=== PATIENT | male | born 2000 | race Caucasian/White ===

== ENCOUNTER 2019-08-13 08:00 | Outpatient (RCR) | payer OTHER, SELFPAY ==
--- NOTE | 2019-02-19 09:30 | HP.PTEVAL_ITS ---
Patient's Visit Information THOR KWOK is a 18 year old M referred to Physical Therapy by BAKARI RODRIGUEZ with a diagnosis of L aCL tear s/p repair 01/27. Date of Evaluation: 02/19/19 Physical Therapist: Davey Prieto, DPT, OCS, CSCS - Visit Plan Frequency: 3x /Week Duration: up to 6 months duration Plan: 3x/week initially x 3-6 weeks for short term goals then 1-3x/week for up to 6 month total to progress return to sport actiivities as allowed by protocol. Please start per prptocol WBAT L locked 0-30 until week for then 10 degree progression until return to doctor. Progress knee flexion ROM to 90 by week 6. patellar mobs, HS stretches and rollout. Strrengthening per protocol. - Subjective Findings: L ACL repair 01/27/19. Went to PT for 2 weeks back in [facility] where he lives. 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 So it is a worker's comp injury. Actual injury was 01/03/19. 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 Pain level is not bad, doesn't hurt at all. Took pain meds for 24 hours then done. Has baby aspirin for blood clots. Sleep is fine in brace. Brace is on all the time and 0-30 currently . Had crutches for the first week. Attends practice but not playing. Walking campus without difficulty. Steps are Ok. Surgery was HS graft. HEP : HS stretch. TKE, knee flexion with band, 4 way SLR, HS - Pain L knee Pain Intensity (Out of 10): 0 Pain Intensity Range: 0, 2 Comment: only if wrong step walking. - Objective Walks with brace on locked 0-30 I, minimal L knee flexion at swing. Transfers I in brace, dons and doffs brace I. HEP reviewed adn I. AROM L knee 0-75 initially then 88 after stretching. no quad lag with extension x 5. R knee 0- 140. seated AROM -5 ext to 75 L knee. ankle AROM WNL and strength 5/5 B. Hip AROM WNL and strength L 4/5 adn R 4+. HS 90/90 test -20 degrees with pulling on L. Incisions have healed well adn slight scar tissue only. - Goals Goal 1:: ST: 0 140 aROM as allowed by protocol without pain. Goal Time Frame: 6-8 Weeks Goal 2:: Progress to walking and steps without pain or compensation Goal Time Frame: 6-8 Weeks Goal 3:: LT: I approp HEP in gyma at school to minimize problems Goal Time Frame: 6-8 Weeks Goal 4:: Ready to attempt return to full sport as allowed by protocol with. 90+% quad and HS strength L to R and 90+% L to R SL hop test and no compensation with running and kicking. Goal Time Frame: 6 months - Rehabilitation Potential Physical Therapy Diagnosis: s/p L ACL repair with HS graft 01/27 Rehabilitation Potential: Excellent - Anticipated Interventions Patient/Client Instruction: Educate patient on: Condition, Plan of Care For the Purpose of:: To decrease swelling/inflammation, To increase ROM, To improve muscle performance and motor function, To improve ability to perform ADL's, To improve ability of physical actions for home/community/work/leisure Therapeutic Exercise to Include: Strength training, Postural training, Flexibilty training, Gait and locomotor training, Passive ROM, Active ROM For the Purpose of:: To decrease pain, To increase ROM, To improve muscle performance and motor function, To increase tolerance to activity/condition/position, To improve ability of physical actions for home/community/work/leisure, To improve gait and locomotor functions Manual Therapy Techniques to Include: Scar massage, Mobilization Cryotherapy (ice pack, ice massage): Yes For the Purpose of:: To decrease pain, To decrease swelling/inflammation Thank you for the opportunity to evaluate your patient. For Medicare and Medicare HMO plans, please review the plan of care and approve it. It will need to be FAXED BACK to us at [phone] for Medicare purposes. For Medicare only, by signing this I certify the plan of care. Please let me know if there are questions or concerns regarding this plan of care. Physician Signature: Date:
--- NOTE | 2019-04-02 08:01 | HP.PTREVAL ---
BAKARI RODRIGUEZ, It has been my pleasure to treat THOR KWOK over the last 15 visits for L aCL tear s/p repair 01/27. Please see the progress note below for an update on the physical therapy plan of care! Subjective: No pain. Sleep is good. Activities outside of sports are pretty normal. HEP: exercising hip machine and band walk and bike and HSC at [employer]. Does leg press at [employer]. Objective/Function: 129 R knee flexion and 121 L knee. Full extension B knees. SLR x 20 without lag today on L side. Walks normal. L girth 6 suprapatella 19.5 inches adn R is 20.25 inches. Steps are reciprocal without rail without deficits today and can do 2 steps at a time easily. Strength L HS:4-. Strength quad at 45 degrees seated:4. OVERALL DOING VERY WELL ADN APPROPRIATE TO CONTINUE I AT GYM ADN IN THERAPY TO PROGRESS FUNCTION PER PRPTOCOL WITH GOOD PROGNOSIS Plan Plan: WEEEKLY TO PRGORESS HEP PER PRPTOCOL. Goals Goal 1:: ST: 0 140 aROM as allowed by protocol without pain. Goal Time Frame: 6-8 Weeks Goal Progress: Progressing Goal 2:: Progress to walking and steps without pain or compensation Goal Time Frame: 6-8 Weeks Goal Progress: Goal Met Goal 3:: LT: I approp HEP in gyma at school to minimize problems Goal Time Frame: 6-8 Weeks Goal Progress: Goal Met, initial strengt Goal 4:: Ready to attempt return to full sport as allowed by protocol with. 90+% quad and HS strength L to R and 90+% L to R SL hop test and no compensation with running and kicking. Goal Time Frame: 6 months Anticipated Interventions Patient/Client Instruction: Educate patient on: Condition, Plan of Care For the Purpose of:: To decrease swelling/inflammation, To increase ROM, To improve muscle performance and motor function, To improve ability to perform ADL's, To improve ability of physical actions for home/community/work/leisure Therapeutic Exercise to Include: Strength training, Postural training, Flexibilty training, Gait and locomotor training, Passive ROM, Active ROM For the Purpose of:: To decrease pain, To increase ROM, To improve muscle performance and motor function, To increase tolerance to activity/condition/position, To improve ability of physical actions for home/community/work/leisure, To improve gait and locomotor functions Manual Therapy Techniques to Include: Scar massage, Mobilization Cryotherapy (ice pack, ice massage): Yes For the Purpose of:: To decrease pain, To decrease swelling/inflammation Please do not hesitate to contact me at [phone] by phone or if you have questions or concerns regarding this new plan of care! Sincerely, Davey Prieto, DPT, OCS, CSCS
--- NOTE | 2019-05-07 08:46 | HP.PTREVAL ---
BAKARI RODRIGUEZ, It has been my pleasure to treat THOR KWOK over the last 20 visits for L aCL tear s/p repair 01/27. Please see the progress note below for an update on the physical therapy plan of care! Subjective: Doing well. No pain, stiff sometimes. Life normal outside of sports. Doing strength at gym 2-3x/week. Will be on break next week adn have 3 month f/u with doctor. Objective/Function: 0-130 L knee AROM, 0-133 Right. 20.5 inches B girth 6 inch suprapatellar. Walking normal, steps normal. Tightness in quad and HS persist and patient working on this at home. Started gentle sideshuffle today adn hopping in place without incident. Jogged and jumped in place withotu antalgia or pain today. Slightly avoid L with hop but corrects with cues. Plan Plan: Weekly x 3 months to progress agility, strength, plyometrics until appropriate return to sport criteria met. pt to do workouts 3x/week at school/home gym adn see therapist for appropriate progressions unless otherwise indicated. Pt to go home to see doctor for Thanks break aand then will be back for two visits before break. Goals Goal 1:: ST: 0 140 aROM as allowed by protocol without pain. Goal Time Frame: 6-8 Weeks Goal Progress: Progressing Goal 2:: Progress to walking and steps without pain or compensation Goal Time Frame: 6-8 Weeks Goal Progress: Goal Met Goal 3:: LT: I approp HEP in gyma at school to minimize problems Goal Time Frame: 6-8 Weeks Goal Progress: Goal Met, initial strengt Goal 4:: Ready to attempt return to full sport as allowed by protocol with. 90+% quad and HS strength L to R and 90+% L to R SL hop test and no compensation with running and kicking. Goal Time Frame: 6 months Anticipated Interventions Patient/Client Instruction: Educate patient on: Condition, Plan of Care For the Purpose of:: To decrease swelling/inflammation, To increase ROM, To improve muscle performance and motor function, To improve ability to perform ADL's, To improve ability of physical actions for home/community/work/leisure Therapeutic Exercise to Include: Strength training, Postural training, Flexibilty training, Gait and locomotor training, Passive ROM, Active ROM For the Purpose of:: To decrease pain, To increase ROM, To improve muscle performance and motor function, To increase tolerance to activity/condition/position, To improve ability of physical actions for home/community/work/leisure, To improve gait and locomotor functions Manual Therapy Techniques to Include: Scar massage, Mobilization Cryotherapy (ice pack, ice massage): Yes For the Purpose of:: To decrease pain, To decrease swelling/inflammation Please do not hesitate to contact me at [phone] by phone or if you have questions or concerns regarding this new plan of care! Sincerely, Davey Prieto, DPT, OCS, CSCS
--- NOTE | 2019-05-21 07:51 | HP.PTREVAL ---
BAKARI RODRIGUEZ, It has been my pleasure to treat THOR KWOK over the last 21 visits for L aCL tear s/p repair 01/27. Please see the progress note below for an update on the physical therapy plan of care! Subjective: No setbacks, doing well, no real pain. Saw doctor while he was home last week. Worked out 4 times while at home. Doctor said he was doing well adn can slowy progress back to activity. Will see doctor in late July hopefully for final release. Objective/Function: 20.5 inch B girth. 0-132 B AROM without pain. L HS strength 46, R 54. L quad strength 51# and R 58#. sLIGHT COMPENSATION STARTING TWO LEGGED HOP IN PLACE AVOIDING L LE BUT CORRECTED WITH VC. PROGRESSED JOGGING TO START SLOW INTERVALS WITHOUT LIMPING TODAY. PROGRESSED TO 50% AGILITY WITHOUT PAIN OR PROBLEMS. ROM REMAINS FULL AND NO PAIN WITH STRENGTH TESTING ABOVE TODAY. Plan Plan: Next visit: measure and progress to single leg side hops, drop jump, 75% agility, weight to SLS, check treadmill intervals. Appropriate to see weekly to every other week to progress through return to sport protocol over the next 3 months per doctors timeline. Will need more visits to do so. Goals Goal 1:: ST: 0 140 aROM as allowed by protocol without pain. Goal Time Frame: 6-8 Weeks Goal Progress: symmetrical Goal 2:: Progress to walking and steps without pain or compensation Goal Time Frame: 6-8 Weeks Goal Progress: Goal Met Goal 3:: LT: I approp HEP in gyma at school to minimize problems Goal Time Frame: 6-8 Weeks Goal Progress: continual goal until RTS Goal 4:: Ready to attempt return to full sport as allowed by protocol with. 90+% quad and HS strength L to R and 90+% L to R SL hop test and no compensation with running and kicking. Goal Time Frame: 6 months Goal Progress: Progressing Anticipated Interventions Patient/Client Instruction: Educate patient on: Condition, Plan of Care For the Purpose of:: To decrease swelling/inflammation, To increase ROM, To improve muscle performance and motor function, To improve ability to perform ADL's, To improve ability of physical actions for home/community/work/leisure Therapeutic Exercise to Include: Strength training, Postural training, Flexibilty training, Gait and locomotor training, Passive ROM, Active ROM For the Purpose of:: To decrease pain, To increase ROM, To improve muscle performance and motor function, To increase tolerance to activity/condition/position, To improve ability of physical actions for home/community/work/leisure, To improve gait and locomotor functions Manual Therapy Techniques to Include: Scar massage, Mobilization Cryotherapy (ice pack, ice massage): Yes For the Purpose of:: To decrease pain, To decrease swelling/inflammation Please do not hesitate to contact me at [phone] by phone or if you have questions or concerns regarding this new plan of care! Sincerely, Davey Prieto, DPT, OCS, CSCS
--- NOTE | 2019-07-16 08:58 | HP.PTREVAL ---
BAKARI RODRIGUEZ, It has been my pleasure to treat THOR KWOK over the last 24 visits for L aCL tear s/p repair 01/27. Please see the progress note below for an update on the physical therapy plan of care! Subjective: No problems with exercises which he has been compliant with and no pain or soreness. Exercising withi prescribed limitations. Objective/Function: About 6 months out on his surgery and progressing nicely. works hard as I would expect an athlete to do. No obvious gait deficits with sprinting on TM but 11.4 is about his limit physically. Full APROM without pain. girth: 6 inch SP: R:21 inch L:20.5 inches(1/2 inch difference, good quad contraction. HS L 49# and R 58#. Quad L 64# and R is 70#. SLH 53 inches L and 51 R. Pt doing well with measurables and subjective. No obvious compensation with full jump today but not running confidently on sprints and needs gradual loading progression of sports specific and plyo and sprint cut to get back to football safely. Needs one more month. Plan Plan: Onel full AROM and PROM to 140 felxion with slight tightness at end range.every other week x 1-2 months for progression of sports specific kicking, sprinting, cutting at full speed and return to sport testing needing triple hop tet, increase girth in upper leg and HS strength improvement. Appropriate with fair prognosis toward new goals. Next session, progress to 100% all plyo and agility, sprint with quick stopping adn cutting, progress kicking. Goals Goal 1:: ST: 0 140 aROM as allowed by protocol without pain. Goal Time Frame: 6-8 Weeks Goal Progress: Goal Met Goal 2:: Progress to walking and steps without pain or compensation Goal Time Frame: 6-8 Weeks Goal Progress: Goal Met Goal 3:: LT: I approp HEP in gyma at school to minimize problems Goal Time Frame: 6-8 Weeks Goal Progress: continual goal until RTS Goal 4:: Ready to attempt return to full sport as allowed by protocol with. 90+% quad and HS strength L to R and 90+% L to R SL hop test and no compensation with running and kicking. Goal Time Frame: 6 months Goal Progress: Progressing Goal 5:: 90% L to R triple hop %, 90+% HS strength L to R. to facilitate safe recommendation for release to full kicking in sport. Goal Time Frame: 6-8 Weeks Goal Progress: NEW GOAL Goal 6:: Released by doctor to return to sport Goal Time Frame: 6-8 Weeks Goal Progress: new goal Anticipated Interventions Patient/Client Instruction: Educate patient on: Condition, Plan of Care For the Purpose of:: To decrease swelling/inflammation, To increase ROM, To improve muscle performance and motor function, To improve ability to perform ADL's, To improve ability of physical actions for home/community/work/leisure Therapeutic Exercise to Include: Strength training, Postural training, Flexibilty training, Gait and locomotor training, Passive ROM, Active ROM For the Purpose of:: To decrease pain, To increase ROM, To improve muscle performance and motor function, To increase tolerance to activity/condition/position, To improve ability of physical actions for home/community/work/leisure, To improve gait and locomotor functions Manual Therapy Techniques to Include: Scar massage, Mobilization Cryotherapy (ice pack, ice massage): Yes For the Purpose of:: To decrease pain, To decrease swelling/inflammation Please do not hesitate to contact me at [phone] by phone or if you have questions or concerns regarding this new plan of care! Sincerely, Davey Prieto, DPT, OCS, CSCS
--- NOTE | 2019-07-30 08:43 | HP.PTREVAL ---
BAKARI RODRGIUEZ, It has been my pleasure to treat THOR KWOK over the last 25 visits for L aCL tear s/p repair 01/27. Please see the progress note below for an update on the physical therapy plan of care! Subjective: No pain, no problems. Kicked soccer ball with R without issues. Will see doctor on . No problems getting exercises in. Objective/Function: 0-135 aROM B knees in supine, slight tighter quad on L initially but stretches out nicely.21 8 L girth adn 21.5 inches R at 6 suprapatellar. 79# L quad adn 70# R. HS strength: 56# L adn 64# R. Single leg hop L:56inch, R 54 inch. Triple hop: L 190 inch and R 174 inches. OVERALL PATIENT DOING VERY WELL AND PROGRESSING NICELY. HE IS A BIT BEHIND 90% l TO r IN STRENGTH OF hs AND QUAD, BUT FUNCTIONALLY IS PASSING SINGLE LEG HOP, TRIPLE HOP AND GIRTH VERY WELL. rom IS FULL AND WITHOUT PAIN. NO OBVIOUS COMPENSATION WITH JUMPING OR CUTTING TODAY. Plan Plan: f/u two weeks after doctor visit to progress as needed especially kicking adn check sprinting. Goals Goal 1:: ST: 0 140 aROM as allowed by protocol without pain. Goal Time Frame: 6-8 Weeks Goal Progress: Goal Met Goal 2:: Progress to walking and steps without pain or compensation Goal Time Frame: 6-8 Weeks Goal Progress: Goal Met Goal 3:: LT: I approp HEP in gyma at school to minimize problems Goal Time Frame: 6-8 Weeks Goal Progress: Goal Met Goal 4:: Ready to attempt return to full sport as allowed by protocol with. 90+% quad and HS strength L to R and 90+% L to R SL hop test and no compensation with running and kicking. Goal Time Frame: 6 months Goal Progress: Progressing Goal 5:: 90% L to R triple hop %, 90+% HS strength L to R. to facilitate safe recommendation for release to full kicking in sport. Goal Time Frame: 6-8 Weeks Goal Progress: HOP, NOT STRENGTH YET Goal 6:: Released by doctor to return to sport Goal Time Frame: 6-8 Weeks Goal Progress: new goal Anticipated Interventions Patient/Client Instruction: Educate patient on: Condition, Plan of Care For the Purpose of:: To decrease swelling/inflammation, To increase ROM, To improve muscle performance and motor function, To improve ability to perform ADL's, To improve ability of physical actions for home/community/work/leisure Therapeutic Exercise to Include: Strength training, Postural training, Flexibilty training, Gait and locomotor training, Passive ROM, Active ROM For the Purpose of:: To decrease pain, To increase ROM, To improve muscle performance and motor function, To increase tolerance to activity/condition/position, To improve ability of physical actions for home/community/work/leisure, To improve gait and locomotor functions Manual Therapy Techniques to Include: Scar massage, Mobilization Cryotherapy (ice pack, ice massage): Yes For the Purpose of:: To decrease pain, To decrease swelling/inflammation Please do not hesitate to contact me at [phone] by phone or if you have questions or concerns regarding this new plan of care! Sincerely, Davey Prieto, DPT, OCS, CSCS
--- NOTE | 2019-08-13 08:38 | HP.PTREVAL ---
BAKARI RODRIGUEZ, It has been my pleasure to treat THOR KWOK over the last 26 visits for L aCL tear s/p repair 01/27. Please see the progress note below for an update on the physical therapy plan of care! Subjective: Doing well. saw doctor miguel wants him to wait 3 months until November to kick as a precautiona nd keep doing what he is doing until then. Ordered brace [facility] patient is working on getting. No problems with pain or motion or workout. Been kicking soccer ball without incident as prescribed. Objective/Function: No gait deviations on jogging or walking or steps today. Quad strength 69#B. HSC strength:62#. L 21 3/8 inch girth adn R 21.5 inch at 6 inch sp. R leg slh 60 TH 168. L leg SLH 59 inch and TH 173. Pt passing criteria with nearly 100% symmetry. No deviations or compensations today on jogging or jumping. limited by doctors orders on kicking, otherwise doing well. A good idea based on recent research to limit return to sport until November. Plan Plan: f/u in two months to check sprinting and quick stop, educate on timeline with kicking progressions and d/c. pt to call prior if needed. Goals Goal 1:: ST: 0 140 aROM as allowed by protocol without pain. Goal Time Frame: 6-8 Weeks Goal Progress: Goal Met Goal 2:: Progress to walking and steps without pain or compensation Goal Time Frame: 6-8 Weeks Goal Progress: Goal Met Goal 3:: LT: I approp HEP in gyma at school to minimize problems Goal Time Frame: 6-8 Weeks Goal Progress: Goal Met Goal 4:: Ready to attempt return to full sport as allowed by protocol with. 90+% quad and HS strength L to R and 90+% L to R SL hop test and no compensation with running and kicking. Goal Time Frame: 3 more months Goal Progress: on target Goal 5:: 90% L to R triple hop %, 90+% HS strength L to R. to facilitate safe recommendation for release to full kicking in sport. Goal Time Frame: 6-8 Weeks Goal Progress: Goal Met Goal 6:: Released by doctor to return to sport Goal Time Frame: 3 months Goal Progress: limited by time, approp. Anticipated Interventions Patient/Client Instruction: Educate patient on: Condition, Plan of Care For the Purpose of:: To decrease swelling/inflammation, To increase ROM, To improve muscle performance and motor function, To improve ability to perform ADL's, To improve ability of physical actions for home/community/work/leisure Therapeutic Exercise to Include: Strength training, Postural training, Flexibilty training, Gait and locomotor training, Passive ROM, Active ROM For the Purpose of:: To decrease pain, To increase ROM, To improve muscle performance and motor function, To increase tolerance to activity/condition/position, To improve ability of physical actions for home/community/work/leisure, To improve gait and locomotor functions Manual Therapy Techniques to Include: Scar massage, Mobilization Cryotherapy (ice pack, ice massage): Yes For the Purpose of:: To decrease pain, To decrease swelling/inflammation Please do not hesitate to contact me at [phone] by phone or if you have questions or concerns regarding this new plan of care! Sincerely, Davey Prieto, DPT, OCS, CSCS
== END 2019-08-13 17:00 | disposition home or self-care (01) ==
LOC: PT 08:00
DX: Z47.89 Encounter for other orthopedic aftercare (principal)
CPT/HCPCS: 97110; 97161; 97530